=== PATIENT | male | born 1995 | race African-American/Black ===

== ENCOUNTER 2022-01-29 13:03 | Emergency (ER) | payer MEDICAID ==
[~2022-01-29] VITALS: Ht 180.3 cm; Wt 114.0 kg
[2022-01-29] MEDS ORDERED: DOCUSATE SODIUM SUGAR FREE 100MG/10ML UDC NG ONE (14:30)
[2022-01-29] MEDS ORDERED: AMOX-424 MT (15:53)
[2022-01-29 16:02] VITALS: BP 137/88
== END 2022-01-29 16:03 | disposition home or self-care (01) ==
LOC: ER 14:38
DX: J32.9 Chronic sinusitis, unspecified (principal); H61.21 Impacted cerumen, right ear
CPT/HCPCS: 69209; 99282

== ENCOUNTER 2022-01-31 13:00 | Emergency (ER) | payer MEDICAID ==
[~2022-01-31] VITALS: Ht 180.3 cm; Wt 118.0 kg
[~2022-01-31 13:00] MED LIST: AMOX-424 MT
[2022-01-31 13:02] VITALS: BP 143/78
[2022-01-31] MEDS ORDERED: SODIUM CHLORIDE 0.9% 1000ML BAG (SEPSIS BOLUS) IV ONE (13:15)
[2022-01-31] MEDS ORDERED: MECLIZINE 25MG TABLET PO ONE (13:30)
[2022-01-31] MEDS ORDERED: ONDANSETRON HCL 4MG/2ML INJ IV ONE (13:30)
[2022-01-31] MEDS ORDERED: SODIUM CHLORIDE 0.9% 1,000 ML IV ONE (13:30)
[2022-01-31] MEDS ORDERED: AMOXICILLIN/POTASSIUM CLAVULANATE 875/125MG TAB PO ONE (13:30)
[2022-01-31 13:57] LABS: CHLORIDE 105 mEq/L (98-107)
[2022-01-31 13:59] LABS: BASOPHILS % 0.8 % (0.0-2.0); EOSINOPHILS % 1.1 % (0.0-5.0); HEMATOCRIT. 41.5 % (42.0-52.0); LYMPHOCYTES % 15.6 % (20.0-50.0); MEAN CORPUSCULAR HEMOGLOBIN 27.8 pg (28.0-32.0); MEAN CORPUSCULAR VOLUME 88.3 fL (80.0-94.0); MEAN PLATELET VOLUME 10.4 fl (7.4-10.4); NEUTROPHILS % 74.5 % (40.0-76.0); PLATELET 167 x1000/uL (130-400); RED BLOOD CELL COUNT 4.69 mill/uL (4.7-6.1); RED CELL DISTRIBUTION WIDTH 13.2 % (11.6-14.6)
[2022-01-31] MEDS ORDERED: SODIUM CHLORIDE 0.9% 1,000 ML IV NR (15:45)
[2022-01-31 15:53] LABS: CLARITY URINE CLEAR (CLEAR); COLOR URINE YELLOW (YELLOW); KETONES URINE NEGATIVE (NEGATIVE); LEUKOCYTE ESTERASE URINE NEGATIVE (NEGATIVE); NITRITE URINE NEGATIVE (NEGATIVE); OCCULT BLOOD URINE NEGATIVE (NEGATIVE); PROTEIN URINE NEGATIVE (NEGATIVE); SPECIFIC GRAVITY URINE 1.015 (1.005-1.030); UROBILINOGEN URINE 0.2 E.U./dL (0.2-1.0)
[2022-01-31 18:31] LABS: *BARBITURATES SCREEN URINE NEGATIVE (NEGATIVE)
[2022-01-31 18:32] LABS: *AMPHETAMINES SCREEN URINE NEGATIVE (NEGATIVE); *BENZODIAZEPINES SCREEN URINE NEGATIVE (NEGATIVE); *COCAINE SCREEN URINE NEGATIVE (NEGATIVE); METHADONE URINE SCREEN NEGATIVE (NEGATIVE); OPIATES URINE SCREEN NEGATIVE (NEGATIVE); PHENCYCLIDINE URINE SCREEN NEGATIVE (NEGATIVE)
[2022-01-31 18:33] LABS: CANNABINOID URINE SCREEN PRESUMTIVE POSITIVE (NEGATIVE)
== END 2022-01-31 17:31 | disposition home or self-care (01) ==
LOC: ER 13:00
DX: J32.9 Chronic sinusitis, unspecified (principal); R11.2 Nausea with vomiting, unspecified
CPT/HCPCS: 36415; 70450; 70486; 71045; 80053; 80305; 81003; 83605; 85025; 87040; 87086; 93005; 96361; 96374; 99285; J2405; J7030; J8597

== ENCOUNTER 2022-02-02 09:53 | Emergency (ER) | payer MEDICAID ==
[~2022-02-02] VITALS: Ht 180.3 cm; Wt 98.0 kg
[2022-02-02 09:56] VITALS: BP 140/117
[2022-02-02] MEDS ORDERED: CARB-274 EACH EAR (10:32)
== END 2022-02-02 10:54 | disposition home or self-care (01) ==
LOC: ER 09:53
DX: J32.9 Chronic sinusitis, unspecified (principal); H61.21 Impacted cerumen, right ear
CPT/HCPCS: 99282